=== PATIENT | male | born 1995 | race African-American/Black ===

== ENCOUNTER 2023-11-13 09:21 | Emergency (ER) | payer OTHER ==
[2023-11-13] MEDS ORDERED: Lidocaine 1% PF 5 ML VIAL ONE (09:35)
[2023-11-13] MEDS ORDERED: Lidocaine/Transparent Dressing 1 EACH KIT ONE (09:35)
[2023-11-13] MEDS ORDERED: Ibuprofen 800 MG TAB ONE (10:03)
[2023-11-13] MEDS ORDERED: Amoxicillin/Potassium Clav 875 MG TAB ONE (10:03)
== END 2023-11-13 10:07 ==
LOC: ERS 09:21 → EEVIPCON 09:21 → ERS 10:07
DX: S01.511A Laceration without foreign body of lip, initial encounter (principal); W22.8XXA Striking against or struck by other objects, initial encounter
CPT/HCPCS: 12011; 99283